=== PATIENT | male | born 1985 | race African-American/Black ===

== ENCOUNTER 2024-02-26 12:05 | Emergency (ER) | payer SELFPAY ==
[2024-02-26] MEDS ORDERED: CEFTRIAXONE 250 MG/VIAL ONE (13:22)
[2024-02-26] MEDS ORDERED: metroNIDAZOLE 500 MG TABLET ONE (13:22)
[2024-02-26] MEDS ORDERED: LIDOCAINE 1% MPF 5 ML VIAL ONE (13:22)
--- NOTE | 2024-02-26 13:35 | EDPHYS ---
Physician Documentation 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 13:33 The patient presents with Penile discharge. Onset: The symptoms/episode began/occurred rn 3 day(s) ago. Modifying factors: The symptoms are alleviated by nothing, the symptoms are aggravated by nothing. Severity of symptoms: At their worst the symptoms were mild, in the emergency department the symptoms are unchanged. Patient reports concern for sexually transmitted infection, has penile discharge, that is yellow, for the last 3 days. Has not had a chance to ask his sexual partner any questions. He came in for treatment. Denies abdominal pain. No scrotal pain or swelling. No rash. No swelling of penis.. Historical: - Allergies: 12:26 No Known Allergies; iw - Home Meds: 12:26 None [Active]; iw - PMHx: 12:26 None; iw - PSHx: 12:26 None; iw - Social history:: Smoking status: . - Family history:: not pertinent. - Hospitalizations: : No recent hospitalization is reported. 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 Vital Signs: 12:24 BP 118 / 76; Pulse 67; Resp 16; Temp 98.1; Pulse Ox 99% ; Weight 83.91 kg; Height 5 ft. iw 7 in. ; Pain 0/10; 12:24 Body Mass Index 28.97 (83.91 kg, 170.18 cm) iw 12:24 Pain Scale: Adult iw MDM: 12:10 Patient medically screened. rn 13:33 Differential diagnosis: STI. Data reviewed: vital signs, nurses notes, and as a result, rn I will discharge patient. Counseling: I had a detailed discussion with the patient and/or guardian regarding the historical points, exam findings, and any diagnostic results supporting the discharge/admit diagnosis, the need for outpatient follow up, to return to the emergency department if symptoms worsen or persist or if there are any questions or concerns that arise at home. Special discussion: I discussed with the patient/guardian in detail that at this point there is no indication for admission to the hospital. It is understood, however, that if the symptoms persist or worsen the patient needs to return immediately for re-evaluation. ED course: No indication for testing at this time emergently. Decision made jointly with patient to treat empirically for STI.. Administered Medications: 13:33 Drug: Rocephin (cefTRIAXone) IM 250 mg IM once Route: IM; Site: left deltoid; iw 13:53 Follow up: Response: No adverse reaction iw :33 Drug: metroNIDAZOLE PO 2 grams PO once Route: PO; iw :53 Follow up: Response: No adverse reaction iw Disposition Summary: 02/26/24 13:35 Discharge Ordered Notes: Location: Home rn Problem: new rn Symptoms: have improved rn Condition: Stable rn Diagnosis - Unspecified sexually transmitted disease rn Followup: rn - With: Private Physician - When: As needed - Reason: Recheck today's complaints, Re-evaluation by your physician Discharge Instructions: - Discharge Summary Sheet rn - Preventing Sexually Transmitted Infections, Adult rn Forms: - Medication Reconciliation Form rn - Antibiotic medical assistant prn - Prescription Opioid Use rn - Patient Portal Instructions rn - Leadership Thank You Letter rn Prescriptions: - Doxycycline Monohydrate 100 mg Oral Tablet - take 1 tablet ORAL route every 12 hours for 10 days; 20 tablet; Refills: 0, rn Product Selection Permitted Signatures: Lisa Olguin RN RN iw Nils Breen MD MD rn
--- NOTE | 2024-02-26 13:35 | ER ---
Nurse's Notes [facility] Name: Jamie Christensen Jr Age: 38 yrs Sex: Male : 1985 Arrival Date: 02/26/2024 Time: 12:05 Bed 10 Private MD: Diagnosis: Unspecified sexually transmitted disease Presentation: 02/25 12:24 Chief complaint: Patient states: white/yellow penile discharge since yesterday , denies iw pain or burning with urination. Coronavirus screen: At this time, the client does not indicate any symptoms associated with coronavirus-19. Ebola Screen: No symptoms or risks identified at this time. Initial Sepsis Screen: Does the patient meet any 2 criteria? No. Patient's initial sepsis screen is negative. Does the patient have a suspected source of infection? No. Patient's initial sepsis screen is negative. Risk Assessment: Do you want to hurt yourself or someone else? Patient reports no desire to harm self or others. Onset of symptoms was February 25, 2024. 12:24 Method Of Arrival: Ambulatory iw 12:24 Acuity: SAIRA 4 iw Triage Assessment: 12:30 General: Appears in no apparent distress. Behavior is calm, cooperative, appropriate iw for age. Historical: - Allergies: 12:26 No Known Allergies; iw - Home Meds: 12:26 None [Active]; iw - PMHx: 12:26 None; iw - PSHx: 12:26 None; iw - Social history:: Smoking status: . - Family history:: not pertinent. - Hospitalizations: : No recent hospitalization is reported. Screenin:[facility] ED Fall Risk Assessment (Adult) History of falling in the last 3 months, iw including since admission No falls in past 3 months (0 pts) Confusion or Disorientation No (0 pts) Intoxicated or Sedated No (0 pts) Impaired Gait No (0 pts) Mobility Assist Device Used No (0 pt) Altered Elimination No (0 pt) Score/Fall Risk Level 0 - 2 = Low Risk Oriented to surroundings, Maintained a safe environment. Abuse screen: Denies threats or abuse. Denies injuries from another. Nutritional screening: No deficits noted. Tuberculosis screening: No symptoms or risk factors identified. Assessment: 12:30 General: Appears in no apparent distress. Behavior is calm, cooperative. Pain: Denies iw pain. Neuro: Level of Consciousness is awake, alert, obeys commands, Oriented to person, place, time, situation, Moves all extremities. Full function. Cardiovascular: Patient's skin is warm and dry. Respiratory: Respiratory effort is even, unlabored, Respiratory pattern is regular. : Reports discharge, from penis that is white, yellow. Derm: Skin is intact, is healthy with good turgor. Vital Signs: 12:24 BP 118 / 76; Pulse 67; Resp 16; Temp 98.1; Pulse Ox 99% ; Weight 83.91 kg; Height 5 ft. iw 7 in. ; Pain 0/10; 12:24 Body Mass Index 28.97 (83.91 kg, 170.18 cm) iw 12:24 Pain Scale: Adult iw ED Course: 12:08 Patient arrived in ED. ra3 12:10 Nils Breen MD is Attending Physician. rn 12:24 Lisa Olguin RN is Primary Nurse. iw 12:26 Triage completed. iw 12:27 Arm band placed on. iw 13:52 No provider procedures requiring assistance completed. Patient did not have IV access iw during this emergency room visit. Administered Medications: 13:33 Drug: Rocephin (cefTRIAXone) IM 250 mg IM once Route: IM; Site: left deltoid; iw 13:53 Follow up: Response: No adverse reaction iw 13:33 Drug: metroNIDAZOLE PO 2 grams PO once Route: PO; iw 13:53 Follow up: Response: No adverse reaction iw Medication: 13:00 VIS not applicable for this client. iw Outcome: 13:35 Discharge ordered by . rn 13:52 Discharged to home ambulatory, iw 13:52 Condition: good 13:52 Discharge instructions given to patient, Instructed on discharge instructions, follow up and referral plans. medication usage, Demonstrated understanding of instructions, follow-up care, medications, Prescriptions given X 1, 13:53 Patient left the ED. iw Signatures: Lisa Olguin RN RN iw Nils Breen MD MD rn Alva, Ruby ra3
[2024-02-26 13:58] VITALS: BP 118/76; TEMP 98.1; O2SAT 99
== END 2024-02-26 13:53 | disposition home or self-care (01) ==
LOC: ER 12:05
DX: A64 Unspecified sexually transmitted disease (principal)
CPT/HCPCS: 96372; 99284; J0696; J2001